=== PATIENT | female | born 1960 | race American Indian/Alaskan Native ===

== ENCOUNTER 2022-01-23 15:11 | Inpatient (IN) | payer OTHER ==
[2022-01-23 16:35] LABS: HEMATOCRIT 30.3 % (32.4-45.2); HEMOGLOBIN 9.5 GM/dL (10.7-15.3); MCH 33.3 pg (25.7-33.7); MCHC 31.3 g/dl (32.0-36.0); MEAN CELL VOLUME 106.5 fl (80-96); MEAN PLT VOLUME 10.1 fl (7.5-11.1); PLATELET COUNT 106 10^3/uL (134-434); RBC 2.84 M/mm3 (3.60-5.2); RDW 17.8 % (11.6-15.6); WHITE BLOOD COUNT 5.9 K/mm3 (4.0-10.0)
[2022-01-23 16:39] LABS: PROTHROMBIN TIME (PATIENT) 11.5 SEC (9.7-13.0)
[2022-01-23] MEDS ORDERED: SODIUM CHLORIDE 0.9% 500 ML INFUS.BAG IV ONE (16:41)
[2022-01-23 16:42] LABS: ACTIVATED PTT 25.3 SECONDS (25.2-36.5)
[2022-01-23 17:12] LABS: CALCIUM 13.2 mg/dL (8.5-10.1)
[2022-01-23 17:13] LABS: ALBUMIN 2.5 g/dl (3.4-5.0)
[2022-01-23 17:14] LABS: BLOOD UREA NITROGEN 27.4 mg/dL (7-18)
[2022-01-23 17:16] LABS: CREATININE 0.9 mg/dL (0.55-1.3)
[2022-01-23 17:18] LABS: BILIRUBIN,TOTAL 0.5 mg/dL (0.2-1); TOT PROT 5.4 g/dl (6.4-8.2)
[2022-01-23 17:27] LABS: LACTIC ACID 5.1 mmol/L (0.4-2.0)
[2022-01-23 19:05] LABS: URINE APPEARANCE CLEAR; URINE BILIRUBIN NEGATIVE (NEGATIVE); URINE COLOR YELLOW; URINE GLUCOSE (UA) 3+ (NEGATIVE); URINE KETONE 3+ (NEGATIVE); URINE LEUK ESTERASE NEGATIVE (NEGATIVE); URINE NITRITE NEGATIVE (NEGATIVE); URINE PROTEIN TRACE (NEGATIVE); URINE UROBILINOGEN 0.2 mg/dL (0.2-1.0)
[2022-01-23 19:36] LABS: ANISOCYTOSIS 2+; MACROCYTOSIS 2+; PLATELET ESTIMATE DECREASED
[2022-01-23 21:17] LABS: VENOUS BASE EXCESS -12.8 mmol/L (-2-2); VENOUS O2 SATURATION 52.6 % (70-80); VENOUS PCO2 31.2 mmHg (38-52); VENOUS PH 7.247 (7.310-7.410)
[2022-01-24] MEDS ORDERED: VANCOMYCIN/WATER FOR INJ (PEG) 1,000 MG/200 ML BAG IVPB ONE ×2 (06:57→07:02)
[2022-01-24] MEDS: VANCOMYCIN 1,000 MG in DEXTROSE 5%-WATER - 250 ML IVPB ONE ×2 (06:59→07:04)
[2022-01-24 07:32] LABS: MCH 33.7 pg (25.7-33.7); MCHC 32.1 g/dl (32.0-36.0); MEAN CELL VOLUME 104.7 fl (80-96); MEAN PLT VOLUME 10.1 fl (7.5-11.1); PLATELET COUNT 114 10^3/uL (134-434); RBC 2.67 M/mm3 (3.60-5.2); RDW 17.2 % (11.6-15.6)
[2022-01-24 08:15] LABS: ALBUMIN 2.4 g/dl (3.4-5.0); BLOOD UREA NITROGEN 30.5 mg/dL (7-18); CALCIUM 12.4 mg/dL (8.5-10.1)
[2022-01-24 08:18] LABS: CREATININE 0.7 mg/dL (0.55-1.3)
[2022-01-24 08:20] LABS: BILIRUBIN,TOTAL 0.4 mg/dL (0.2-1); TOT PROT 5.1 g/dl (6.4-8.2)
[2022-01-24 09:58] LABS: ANISOCYTOSIS 1+; MACROCYTOSIS 1+
[2022-01-24] MEDS ORDERED: ACETAMINOPHEN 1000 MG/100 ML BAG IVPB PRN (14:17)
[2022-01-24] MEDS: SODIUM CHLORIDE 0.45% 1,000 ML IV SCH (22:30)
[2022-01-25] MEDS ORDERED: PNEUMOC 20-VAL CONJ-DIP CRM/PF 0.5 ML SYRINGE IM ONE (10:00)
[2022-01-25 11:32] LABS: HEMATOCRIT 25.9 % (32.4-45.2); HEMOGLOBIN 8.1 GM/dL (10.7-15.3); MCH 32.9 pg (25.7-33.7); MCHC 31.3 g/dl (32.0-36.0); MEAN CELL VOLUME 105.3 fl (80-96); MEAN PLT VOLUME 9.6 fl (7.5-11.1); PLATELET COUNT 110 10^3/uL (134-434); RBC 2.46 M/mm3 (3.60-5.2); RDW 17.6 % (11.6-15.6); WHITE BLOOD COUNT 6.6 K/mm3 (4.0-10.0)
[2022-01-25 11:57] LABS: ALBUMIN 2.2 g/dl (3.4-5.0); BLOOD UREA NITROGEN 30.3 mg/dL (7-18); CREATININE 0.9 mg/dL (0.55-1.3); PHOSPHOROUS 2.6 mg/dL (2.5-4.9)
[2022-01-25 11:58] LABS: CALCIUM 11.8 mg/dL (8.5-10.1); MAGNESIUM 1.8 mg/dL (1.8-2.4); TOT PROT 4.7 g/dl (6.4-8.2)
[2022-01-25 12:05] LABS: BILIRUBIN,TOTAL 0.4 mg/dL (0.2-1)
[2022-01-25 13:21] LABS: ANISOCYTOSIS 2+; MACROCYTOSIS 2+
[2022-01-25] MEDS ORDERED: SODIUM BICARBONATE 8.4% 50 MEQ/50 ML VIAL IVPUSH SCH (17:30)
[2022-01-25] MEDS ORDERED: SODIUM CHLORIDE 0.45% 1,000 ML IV SCH (17:30)
[2022-01-25] MEDS ORDERED: SODIUM CHLORIDE 0.45%/POT 20 MEQ/1,000 ML INFUS.BAG IV SCH (17:30)
[2022-01-25] MEDS: SODIUM BICARBONATE 8.4% 50 MEQ/50 ML VIAL IVPUSH SCH ×2 (18:03→21:47)
[2022-01-25] MEDS: KCL 10 MEQ IVPB 10 MEQ/100 ML INFUS.BAG IVPB SCH ×4 (18:22→23:44)
[2022-01-25] MEDS: ARIPiprazole 15 MG TABLET PO SCH (21:45)
[2022-01-25] MEDS: INSULIN (LEVEMIR) 100 UNITS/ML UNITS SQ SCH (21:45)
[2022-01-25] MEDS: INSULIN SLIDING SCALE (NOVOLOG) 1 VIAL SQ SCH (21:46)
[2022-01-26] MEDS: THIAMINE HCL 200 MG/2 ML VIAL IVPB SCH ×4 (01:41→23:00)
[2022-01-26] MEDS: INSULIN SLIDING SCALE (NOVOLOG) 1 VIAL SQ SCH ×4 (06:38→23:00)
[2022-01-26] MEDS: SODIUM CHLORIDE 0.45% 1,000 ML IV SCH (07:50)
[2022-01-26 09:10] LABS: CHLORIDE 121 mmol/L (98-107); SODIUM 156 mmol/L (136-145)
[2022-01-26 09:17] LABS: HEMATOCRIT 25.7 % (32.4-45.2); HEMOGLOBIN 8.5 GM/dL (10.7-15.3); MCH 33.6 pg (25.7-33.7); MCHC 32.9 g/dl (32.0-36.0); MEAN PLT VOLUME 9.1 fl (7.5-11.1); PLATELET COUNT 85 10^3/uL (134-434); RBC 2.52 M/mm3 (3.60-5.2); RDW 17.1 % (11.6-15.6); WHITE BLOOD COUNT 5.3 K/mm3 (4.0-10.0)
[2022-01-26 09:18] LABS: ALBUMIN 2.1 g/dl (3.4-5.0)
[2022-01-26 09:19] LABS: CO2 17 mmol/L (21-32); GLUCOSE,RANDOM 157 mg/dL (74-106); MAGNESIUM 1.4 mg/dL (1.8-2.4)
[2022-01-26 09:20] LABS: BILIRUBIN,TOTAL 0.4 mg/dL (0.2-1); PHOSPHOROUS 1.6 mg/dL (2.5-4.9); SGPT/ALT 15 U/L (13-61); TOT PROT 4.6 g/dl (6.4-8.2)
[2022-01-26 09:21] LABS: ALK PHOS 87 U/L (45-117); CREATININE 0.8 mg/dL (0.55-1.3); SGOT/AST 17 U/L (15-37)
[2022-01-26 09:25] LABS: ANION GAP 19 MMOL/L (8-16)
[2022-01-26] MEDS: INSULIN (LEVEMIR) 100 UNITS/ML UNITS SQ SCH ×2 (09:26→22:59)
[2022-01-26 09:58] LABS: ANISOCYTOSIS 1+; MACROCYTOSIS 1+; PLATELET ESTIMATE DECREASED
[2022-01-26] MEDS: KCL 10 MEQ IVPB 10 MEQ/100 ML INFUS.BAG IVPB SCH ×3 (10:40→13:53)
[2022-01-26] MEDS: CYANOCOBALAMIN (VITAMIN B-12) 1000 MCG/1 ML VIAL IM SCH (10:41)
[2022-01-26] MEDS ORDERED: MAGNESIUM 2GM/50ML STERILE WATER IVPB IVPB ONE (14:30)
[2022-01-26] MEDS ORDERED: POTASSIUM PHOSPHATE 30 MM in SODIUM CHLORIDE 500 ML IVPB ONE (15:00)
[2022-01-26] MEDS: POTASSIUM CHLORIDE 40 MEQ in DEXTROSE 5%-WATER - 1,000 ML IV SCH (15:38)
[2022-01-26 20:46] LABS: CALCIUM 11.9 mg/dL (8.5-10.1)
[2022-01-26 20:47] LABS: BLOOD UREA NITROGEN 22.8 mg/dL (7-18)
[2022-01-26 20:50] LABS: CREATININE 0.8 mg/dL (0.55-1.3)
[2022-01-26 22:26] LABS: ALLENS TEST POSITIVE; ARTERIAL BLD GAS O2 SATURATION 91.9 % (95-98); ARTERIAL BLOOD GAS BASE EXCESS -0.6 mmol/L (-2-2); ARTERIAL BLOOD GAS PO2 58.8 mmHg (80-100); ARTERIAL BLOOD GAS pH 7.452 (7.350-7.450)
[2022-01-26 22:27] LABS: VENT MODE S/T; VENT RATE 16
[2022-01-26 22:46] LABS: BLOOD UREA NITROGEN 20.6 mg/dL (7-18); CALCIUM 12.1 mg/dL (8.5-10.1)
[2022-01-26 22:47] LABS: MAGNESIUM 1.8 mg/dL (1.8-2.4)
[2022-01-26 22:49] LABS: HEMOGLOBIN 10.4 GM/dL (10.7-15.3); MCH 33.1 pg (25.7-33.7); MCHC 33.5 g/dl (32.0-36.0); MEAN PLT VOLUME 8.4 fl (7.5-11.1); PLATELET COUNT 81 10^3/uL (134-434); RBC 3.13 M/mm3 (3.60-5.2)
[2022-01-26 22:50] LABS: CREATININE 0.9 mg/dL (0.55-1.3); PHOSPHOROUS 1.7 mg/dL (2.5-4.9)
[2022-01-26 22:51] LABS: BILIRUBIN,TOTAL 0.2 mg/dL (0.2-1); TOT PROT 4.7 g/dl (6.4-8.2)
[2022-01-26 22:53] LABS: WHITE BLOOD COUNT 1.5 K/mm3 (4.0-10.0)
[2022-01-26] MEDS: ARIPiprazole 15 MG TABLET PO SCH (22:59)
[2022-01-26 23:33] LABS: ANISOCYTOSIS 0; MACROCYTOSIS 0
[2022-01-27] MEDS: KCL 10 MEQ IVPB 10 MEQ/100 ML INFUS.BAG IVPB SCH ×3 (00:14→02:41)
[2022-01-27] MEDS ORDERED: PIPERACILLIN/TAZOB 4.5 GM 4.5 GM in DEXTROSE 5%-WATER 100 ML IVPB SCH (01:00)
[2022-01-27] MEDS ORDERED: AZITHROMYCIN IVPB 500 MG/250 ML BAG IVPB ONE (01:09)
[2022-01-27] MEDS: THIAMINE HCL 200 MG/2 ML VIAL IVPB SCH ×3 (01:27→16:45)
[2022-01-27] MEDS: PIPERACILLIN/TAZOB 4.5 GM 4.5 GM in DEXTROSE 5%-WATER 100 ML IVPB SCH ×3 (01:54→17:09)
[2022-01-27] MEDS: POTASSIUM CHLORIDE 40 MEQ in DEXTROSE 5%-WATER - 1,000 ML IV SCH ×2 (06:05→16:41)
[2022-01-27] MEDS: INSULIN SLIDING SCALE (NOVOLOG) 1 VIAL SQ SCH ×4 (06:49→22:10)
[2022-01-27 10:29] LABS: HEMATOCRIT 27.4 % (32.4-45.2); HEMOGLOBIN 9.1 GM/dL (10.7-15.3); MCH 33.2 pg (25.7-33.7); MCHC 33.3 g/dl (32.0-36.0); MEAN CELL VOLUME 99.6 fl (80-96); MEAN PLT VOLUME 8.8 fl (7.5-11.1); PLATELET COUNT 40 10^3/uL (134-434); RBC 2.75 M/mm3 (3.60-5.2); RDW 17.1 % (11.6-15.6)
[2022-01-27] MEDS: CYANOCOBALAMIN (VITAMIN B-12) 1000 MCG/1 ML VIAL IM SCH (10:29)
[2022-01-27 10:32] LABS: CALCIUM 11.2 mg/dL (8.5-10.1)
[2022-01-27 10:33] LABS: BLOOD UREA NITROGEN 21.5 mg/dL (7-18)
[2022-01-27 10:36] LABS: CREATININE 0.9 mg/dL (0.55-1.3); PHOSPHOROUS 2.4 mg/dL (2.5-4.9)
[2022-01-27 10:37] LABS: BILIRUBIN,TOTAL 0.2 mg/dL (0.2-1)
[2022-01-27 10:38] LABS: TOT PROT 3.8 g/dl (6.4-8.2)
[2022-01-27 10:45] LABS: ALBUMIN 1.5 g/dl (3.4-5.0)
[2022-01-27] MEDS: INSULIN (LEVEMIR) 100 UNITS/ML UNITS SQ SCH ×2 (11:24→22:09)
[2022-01-27 11:32] LABS: ANISOCYTOSIS 0; HELMET CELLS 0; HOWELL-JOLLY BODIES 0; MACROCYTOSIS 0; OVALOCYTE 0; ROULEAU 0; SICKELED CELLS 0; TARGET CELLS 0; TEAR DROP CELLS 0; TOXIC GRANULATION 0
[2022-01-27] MEDS ORDERED: ACETAMINOPHEN 1000 MG/100 ML BAG IVPB PRN (13:56)
[2022-01-27] MEDS: ARIPiprazole 15 MG TABLET PO SCH (22:10)
[2022-01-28] MEDS: THIAMINE HCL 200 MG/2 ML VIAL IVPB SCH ×3 (00:53→17:52)
[2022-01-28] MEDS: PIPERACILLIN/TAZOB 4.5 GM 4.5 GM in DEXTROSE 5%-WATER 100 ML IVPB SCH ×3 (01:56→17:52)
[2022-01-28] MEDS: POTASSIUM CHLORIDE 40 MEQ in DEXTROSE 5%-WATER - 1,000 ML IV SCH ×2 (05:26→15:22)
[2022-01-28] MEDS: INSULIN SLIDING SCALE (NOVOLOG) 1 VIAL SQ SCH ×4 (08:26→21:50)
[2022-01-28] MEDS ORDERED: AZITHROMYCIN IVPB 250 MG in DEXTROSE 5%-WATER - 250 ML IVPB SCH (10:00)
[2022-01-28] MEDS: CYANOCOBALAMIN (VITAMIN B-12) 1000 MCG/1 ML VIAL IM SCH (12:03)
[2022-01-28] MEDS ORDERED: DEXTROSE 50%-WATER 25 GM/50 ML DISP.SYRIN ONE (12:10)
[2022-01-28] MEDS ORDERED: DEXTROSE 50%-WATER - 25 GM/50 ML VIAL IVPUSH ONE (12:12)
[2022-01-28] MEDS ORDERED: INSULIN (LEVEMIR) 100 UNITS/ML UNITS SQ SCH (12:30)
[2022-01-28] MEDS: INSULIN (LEVEMIR) 100 UNITS/ML UNITS SQ SCH (12:33)
[2022-01-28] MEDS ORDERED: DEXTROSE 50%-WATER 25 GM/50 ML DISP.SYRIN IVPUSH ONE ×2 (16:58→22:02)
[2022-01-28] MEDS ORDERED: DEXTROSE 5%-WATER - 1,000 ML IV SCH (17:00)
[2022-01-28] MEDS: D5-NS + 40 MEQ KCL - 40 MEQ/1,000 ML INFUS.BAG IV SCH (17:54)
[2022-01-28] MEDS ORDERED: INSULIN SLIDING SCALE (NOVOLOG) 1 VIAL SQ SCH (20:20)
[2022-01-28] MEDS: ARIPiprazole 15 MG TABLET PO SCH (21:49)
[2022-01-29] MEDS: THIAMINE HCL 200 MG/2 ML VIAL IVPB SCH ×3 (01:20→17:15)
[2022-01-29] MEDS: PIPERACILLIN/TAZOB 4.5 GM 4.5 GM in DEXTROSE 5%-WATER 100 ML IVPB SCH ×3 (02:16→17:56)
[2022-01-29] MEDS: INSULIN SLIDING SCALE (NOVOLOG) 1 VIAL SQ SCH ×3 (06:59→22:00)
[2022-01-29] MEDS: CYANOCOBALAMIN (VITAMIN B-12) 1000 MCG/1 ML VIAL IM SCH (10:15)
[2022-01-29 11:10] LABS: MCH 32.7 pg (25.7-33.7); MCHC 33.2 g/dl (32.0-36.0); MEAN CELL VOLUME 98.7 fl (80-96); MEAN PLT VOLUME 8.5 fl (7.5-11.1); RBC 2.73 M/mm3 (3.60-5.2); WHITE BLOOD COUNT 3.3 K/mm3 (4.0-10.0)
[2022-01-29] MEDS: D5-NS + 40 MEQ KCL - 40 MEQ/1,000 ML INFUS.BAG IV SCH ×2 (11:10→17:17)
[2022-01-29 11:26] LABS: PLATELET COUNT 9 10^3/uL (134-434)
[2022-01-29 11:28] LABS: CALCIUM 10.9 mg/dL (8.5-10.1)
[2022-01-29 11:29] LABS: MAGNESIUM 1.7 mg/dL (1.8-2.4)
[2022-01-29 11:31] LABS: CREATININE 0.2 mg/dL (0.55-1.3)
[2022-01-29 11:32] LABS: PHOSPHOROUS 2.5 mg/dL (2.5-4.9)
[2022-01-29] MEDS ORDERED: MAGNESIUM SULF 50% (8.12 MEQ/2 ML-1 GM VIAL) IVPB ONE (11:42)
[2022-01-29 11:57] LABS: ANISOCYTOSIS 0; HELMET CELLS 0; HOWELL-JOLLY BODIES 0; MACROCYTOSIS 0; OVALOCYTE 0; ROULEAU 0; SICKELED CELLS 0; TARGET CELLS 0; TEAR DROP CELLS 0; TOXIC GRANULATION 0
[2022-01-29 15:06] VITALS: BMI 22.4
[2022-01-29] MEDS ORDERED: SODIUM CHLORIDE 500 ML IV STA (19:27)
[2022-01-29] MEDS: ARIPiprazole 15 MG TABLET PO SCH (22:00)
[2022-01-30] MEDS: THIAMINE HCL 200 MG/2 ML VIAL IVPB SCH ×3 (02:00→20:40)
[2022-01-30] MEDS: PIPERACILLIN/TAZOB 4.5 GM 4.5 GM in DEXTROSE 5%-WATER 100 ML IVPB SCH ×3 (02:51→21:30)
[2022-01-30] MEDS: INSULIN SLIDING SCALE (NOVOLOG) 1 VIAL SQ SCH ×3 (06:15→21:04)
[2022-01-30] MEDS: D5-NS + 40 MEQ KCL - 40 MEQ/1,000 ML INFUS.BAG IV SCH (08:04)
[2022-01-30] MEDS: CYANOCOBALAMIN (VITAMIN B-12) 1000 MCG/1 ML VIAL IM SCH (09:59)
[2022-01-30 10:27] LABS: HEMOGLOBIN 7.9 GM/dL (10.7-15.3); MCH 32.8 pg (25.7-33.7); MCHC 32.9 g/dl (32.0-36.0); MEAN CELL VOLUME 99.7 fl (80-96); MEAN PLT VOLUME 12.1 fl (7.5-11.1); RBC 2.41 M/mm3 (3.60-5.2); RDW 16.8 % (11.6-15.6); WHITE BLOOD COUNT 4.4 K/mm3 (4.0-10.0)
[2022-01-30 10:30] LABS: PLATELET COUNT 5 10^3/uL (134-434)
[2022-01-30 11:07] LABS: ALBUMIN 1.3 g/dl (3.4-5.0); BILIRUBIN,TOTAL 0.2 mg/dL (0.2-1); BLOOD UREA NITROGEN 21.5 mg/dL (7-18); CALCIUM 11.2 mg/dL (8.5-10.1); CREATININE 0.6 mg/dL (0.55-1.3)
[2022-01-30 12:20] LABS: ANISOCYTOSIS 1+; MACROCYTOSIS 1+
[2022-01-30] MEDS ORDERED: ACETAMINOPHEN 1000 MG/100 ML BAG IVPB PRN (12:26)
[2022-01-30] MEDS ORDERED: D5-1/2NS+20 MEQ KCL - 20 MEQ/1,000 ML INFUS.BAG IV SCH (13:30)
[2022-01-30] MEDS: ARIPiprazole 15 MG TABLET PO SCH (21:04)
[2022-01-31] MEDS: THIAMINE HCL 200 MG/2 ML VIAL IVPB SCH ×3 (01:31→17:57)
[2022-01-31] MEDS: PIPERACILLIN/TAZOB 4.5 GM 4.5 GM in DEXTROSE 5%-WATER 100 ML IVPB SCH ×3 (02:47→18:51)
[2022-01-31] MEDS: INSULIN SLIDING SCALE (NOVOLOG) 1 VIAL SQ SCH ×3 (06:15→23:49)
[2022-01-31] MEDS: CYANOCOBALAMIN (VITAMIN B-12) 1000 MCG/1 ML VIAL IM SCH (09:18)
[2022-01-31] MEDS ORDERED: CASPOFUNGIN ACETATE 70 MG in SODIUM CHLORIDE 250 ML IVPB ONE (10:30)
[2022-01-31 11:01] LABS: CALCIUM 11.5 mg/dL (8.5-10.1)
[2022-01-31 11:02] LABS: ALBUMIN 1.3 g/dl (3.4-5.0); BLOOD UREA NITROGEN 23.8 mg/dL (7-18)
[2022-01-31 11:05] LABS: CREATININE 0.6 mg/dL (0.55-1.3)
[2022-01-31 11:06] LABS: BILIRUBIN,TOTAL 0.2 mg/dL (0.2-1); TOT PROT 3.9 g/dl (6.4-8.2)
[2022-01-31] MEDS: POTASSIUM CHLORIDE 20 MEQ in DEXTROSE 5%-WATER - 1,000 ML IV SCH (14:04)
[2022-01-31] MEDS: ARIPiprazole 15 MG TABLET PO SCH (23:49)
[2022-02-01] MEDS: POTASSIUM CHLORIDE 20 MEQ in DEXTROSE 5%-WATER - 1,000 ML IV SCH (01:00)
[2022-02-01] MEDS: THIAMINE HCL 200 MG/2 ML VIAL IVPB SCH ×2 (01:59→11:36)
[2022-02-01] MEDS: PIPERACILLIN/TAZOB 4.5 GM 4.5 GM in DEXTROSE 5%-WATER 100 ML IVPB SCH ×2 (02:40→11:36)
[2022-02-01 06:13] VITALS: BP 111/66; PULSE 86; RESP 18; TEMP 97.2
[2022-02-01] MEDS: INSULIN SLIDING SCALE (NOVOLOG) 1 VIAL SQ SCH (06:20)
[2022-02-01] MEDS ORDERED: CASPOFUNGIN ACETATE 50 MG in SODIUM CHLORIDE 250 ML IVPB SCH (10:00)
[2022-02-01] MEDS: CYANOCOBALAMIN (VITAMIN B-12) 1000 MCG/1 ML VIAL IM SCH (11:36)
== END 2022-02-01 11:17 | disposition expired | DRG 871 ==
LOC: JER 15:11 → JERBED 18:22 → J5S 01-24 18:03
PROVIDERS: ADMIT Internal Medicine; ATTEND Family Medicine
PROC: 30233R1 Transfusion of Nonautologous Platelets into Peripheral Vein, Percutaneous Approach (ICD-10-PCS; principal; 2022-01-23)
DX: A41.9 Sepsis, unspecified organism (principal); G93.41 Metabolic encephalopathy; J96.01 Acute respiratory failure with hypoxia; C18.9 Malignant neoplasm of colon, unspecified; R64 Cachexia; E87.0 Hyperosmolality and hypernatremia; E87.20 Acidosis, unspecified; J44.9 Chronic obstructive pulmonary disease, unspecified; R79.89 Other specified abnormal findings of blood chemistry; E83.52 Hypercalcemia; F20.9 Schizophrenia, unspecified; G93.89 Other specified disorders of brain; I11.0 Hypertensive heart disease with heart failure; E11.9 Type 2 diabetes mellitus without complications; L89.152 Pressure ulcer of sacral region, stage 2; D72.819 Decreased white blood cell count, unspecified; E87.6 Hypokalemia; R62.7 Adult failure to thrive; D69.6 Thrombocytopenia, unspecified; Z68.22 Body mass index [BMI] 22.0-22.9, adult
CPT/HCPCS: 0241U-QW; 36415; 36430; 36600; 70450-TC; 71045-TC-FY; 71250-TC; 72125-TC; 80048; 80053; 80061; 81003; 82140; 82310; 82550; 82607; 82728; 82803; 82962; 83036; 83540; 83550; 83605; 83735; 83970; 84100; 84484; 85025; 85610; 85730; 86850; 86900; 86901; 87040; 87086; 87106; 87186; 93005; 93010; 94660; 97161-GP; 99285-25; J3480; P9034